=== PATIENT | female | born 1955 | race Hispanic/Latino ===

== ENCOUNTER → 2018-10-14 | Day surgery (SDC) | payer BC ==
[~2018-10-14] MED LIST: ABILIFY5 MG PO; CRESTOR10 MG PO; DEPAKOTE ER250 MG PO; FENTANYL CITRATE/PF 100MCG/2 ML INJ ONE; GLUCAGON FOR INJ 1 MG VIAL ONE; HYOSCYAMINE SULFATE 0.5 MG/ML INJ ONE; MIDAZOLAM HCL 2 MG/2 ML VIAL ONE; PROPOFOL IV EMULSION 10 MG/ML 50 ML VIAL ONE; SYNTHROID50 MCG PO; VIT D INJ
--- OUTSIDE RECORDS SUMMARY | 2018-10-14 08:33 | XMS REPORT | Clinical Summary ---
Author Author [facility] Address Unknown Phone Unavailable Care Team Providers Care Technical Support Director Name Role Phone Cindy Ellsworth MD PCP Allergies No Known Allergies Medications End Date Status Medication Sig Dispensed Refills Start Date Active ABILIFY 5 mg tablet Take 2.5 mg 1 by mouth once 6 daily. Active DEPAKOTE ER 250 mg 24 hr Take 250 mg 1 tablet by mouth once 6 daily. Active nystatin-triamcinolone Apply 30 g 0 (MYCOLOG II) 100,000-0.1 topically 2 7 unit/g-% cream (two) times a day. Active Problems Not on file Encounters Care Team Description Date Type Specialty Vickie Callahan MD Encounter for screening mammogram for malignant neoplasm of breast 09/15/2018 Hospital Radiology Encounter Vickie Callahan MD Encounter for screening mammogram for malignant neoplasm of breast (Primary Dx) 09/14/2018 Transcribe Access Orders after 10/13/2017 Social History Date Tobacco Use Types Packs/Day Years Used Unknown If Ever Smoked Sex Assigned at Date Recorded Not on file Industry Job Start Date Occupation Not on file Not on file Not on file Travel End Travel History Travel Start No recent travel history available. Last Filed Vital Signs Not on file Plan of Treatment Health Maintenance Due Date Last Done Comments CERVICAL CANCER SCREENING 1977 COLON CANCER SCREENING 2006 SHINGLES VACCINES (1 of 2006 2) INFLUENZA VACCINE 05/04/2018 BREAST CANCER SCREENING 09/15/2020 09/15/2018, 06/09/2016, 04/10/2015, Additional history exists Procedures Comments Procedure Name Priority Date/Time Associated Diagnosis MAMMO BREAST SCREEN Routine 09/15/2018 Encounter for screening TOMOSYNTHESIS BILATERAL 10:53 AM [employer] mammogram for malignant neoplasm of breast after 10/13/2017 Results * Mammo Breast Screen Tomosynthesis Bilateral (09/15/2018 10:53 AM [employer]) Narrative Performed At PROCEDURE: MAMMO BREAST SCREEN TOMOSYNTHESIS BILATERAL [facility] Computer aided detection was utilized for the interpretation. Bilateral digital screening mammogram was performed with tomosynthesis. COMPARISON EXAMS: [id number] DENSITY:There are scattered areas of fibroglandular density. FINDINGS: No suspicious finding is seen. There are scattered benign-appearing calcifications. An asymmetric density in the upper right breast is unchanged. IMPRESSION: No mammographic evidence of malignancy. Recommend annual screening mammography and correlation with physical exam. BI-RADS 2:BENIGN This facility is accredited by the [employer] for Mammography. A negative x-ray report should not delay biopsy if a dominant or clinically suspicious mass is present.Not all cancers are identified by x-ray. [id number] Performing Organization Address City/State/Zipcode Phone Number [facility] [address] [place] [address] after 10/13/2017 Insurance Payer Benefit Subscriber ID Type Phone Address Plan / Group BCBS BCBS xxxxxxxxxxxx PPO CHOICE PPO/SAM CANO PPO Advance Directives Patient has advance care planning documents on file. For more information, felice norman contact: Vijay Sanford [address] [place] [address]
[2018-10-14 13:00] VITALS: BP 115/81
--- NOTE | 2018-10-14 16:01 | Operative Report ---
DATE OF PROCEDURE: October 14, 2018 REFERRING PHYSICIAN: Dr. Jeannine Levin PROCEDURES PERFORMED 1. Esophagogastroduodenoscopy with biopsies. 2. Colonoscopy with polypectomy. INDICATIONS FOR EGD: Acid reflux. INDICATIONS FOR COLONOSCOPY: Colorectal cancer screening. MEDICATION: Patient was done under MAC. Please see anesthesiologist's note. PROCEDURE: With the patient in the left lateral decubitus position, the flexible fiberoptic Olympus gastroscope was introduced into the esophagus under direct visualization without any difficulty. A minute submucosal nodule was noted in the proximal esophagus, and that was biopsied. The scope was then advanced with ease into the stomach, traversing a small sliding hiatal hernia. Mucosa overlying the antrum and the body revealed some patchy erythema and mild to moderate edema, and biopsies were obtained and sent to stain for H. pylori. Pylorus appeared to be of normal contour and shape. It was intubated with ease, and the scope was advanced all the way to the 2nd portion of the duodenum. The scope was then withdrawn slowly. Mucosa overlying the proximal 2nd portion and the duodenal bulb appeared to be within normal limits. The scope was then withdrawn back into the stomach and retroflexed. Mucosa overlying the fundus and the cardia appeared to be within normal limits. The scope was then straightened out. The stomach was decompressed. Scope was subsequently withdrawn. Patient tolerated the procedure well. IMPRESSION 1. Minute submucosal nodule, proximal esophagus, biopsied. 2. Small sliding hiatal hernia. 3. Gastritis, biopsied. Biopsy sent to stain for H. pylori. PLAN: Follow up histology. Initiate Protonix 40 mg 1 p.o. q.a.m. a.c. The patient was then turned around. After adequate lubrication of the anal canal, a flexible fiberoptic Olympus colonoscope was inserted into the rectum with ease and advanced all the way to the cecum. The scope was then withdrawn slowly. The mucosa overlying the cecum appeared to be within normal limits. Scattered diverticular disease was noted in the ascending, transverse and descending. A minute polyp was hot biopsied from the sigmoid, and 2 minute polyps were hot biopsied from the rectum. The scope was then retroflexed into the distal rectum, and small internal hemorrhoids were noted, none of which was actively bleeding. The scope was then straightened out. It was subsequently withdrawn. Patient tolerated the procedure well. IMPRESSION 1. Diverticulosis. 2. Sigmoid colon polyp, hot biopsied. 3. Rectal polyps, minute, x2, hot biopsied. 4. Small internal hemorrhoids, none actively bleeding. PLAN: Follow up histology. Initiate high-fiber, low-fat diet. Initiate high-fiber supplement. Patient might benefit from a followup colonoscopy in 3 to 5 years. Job#: [id number] cc:JEANNINE LEVIN MD
== END | disposition home or self-care (01) ==
LOC: OR 08:30
PROVIDERS: ATTEND Internal Medicine Gastroenterology
DX: Z12.11 Encounter for screening for malignant neoplasm of colon (principal); K63.5 Polyp of colon; K62.1 Rectal polyp; K29.70 Gastritis, unspecified, without bleeding; K21.9 Gastro-esophageal reflux disease without esophagitis; K22.8 Other specified diseases of esophagus; K44.9 Diaphragmatic hernia without obstruction or gangrene; K57.30 Diverticulosis of large intestine without perforation or abscess without bleeding; K64.8 Other hemorrhoids; R03.0 Elevated blood-pressure reading, without diagnosis of hypertension; E78.00 Pure hypercholesterolemia, unspecified; E03.9 Hypothyroidism, unspecified; F41.9 Anxiety disorder, unspecified; Z01.810 Encounter for preprocedural cardiovascular examination; Z68.31 Body mass index [BMI] 31.0-31.9, adult
CPT/HCPCS: 43239; 45384; 93005; J1610; J1980; J2250; 45378

== ENCOUNTER → 2021-11-26 | Day surgery (SDC) | payer MEDICARE, BC ==
[2021-11-24 10:47] LABS: BASOPHILS # (AUTO) 0.1 (0.0-0.1); BASOPHILS % 0.5 % (0.0-1.0); EOSINOPHILS # (AUTO) 0.1 (0.0-0.4); EOSINOPHILS % 0.9 % (0.0-6.0); HEMATOCRIT 40.3 % (34.2-44.1); HEMOGLOBIN 12.1 g/dL (12.0-16.0); LYMPHOCYTES # (AUTO) 2.7 (1.0-3.2); LYMPHOCYTES % 29.3 % (18.0-39.1); MEAN CORPUSCULAR VOLUME 66.6 fL (81-99); MONOCYTES # (AUTO) 0.7 (0.2-0.8); MONOCYTES % 7.6 % (4.4-11.3); NEUTROPHILS # (AUTO) 5.7 (2.1-6.9); NEUTROPHILS % 61.4 % (38.7-80.0); PLATELET COUNT 234 x10e3/uL (140-360); RED BLOOD COUNT 6.05 x10e6/uL (3.6-5.1); RED CELL DISTRIBUTION WIDTH 17.8 % (11.7-14.4)
[~2021-11-26] MED LIST changes: +DEXTROSE 5% 250ML 0 ML IV ONE; -GLUCAGON FOR INJ 1 MG VIAL ONE; -HYOSCYAMINE SULFATE 0.5 MG/ML INJ ONE; +LIDOCAINE HCL 2% LOCAL INJ 5 ML SDV VIAL INJ ONE; +METOCLOPRAMIDE HCL 10 MG/2ML VIAL ONE; +MTV PO; +ONDANSETRON HCL INJ 2MG/ML 2ML 2 MG/ML VIAL ONE; +POVIDONE IODINE 0.05% 0.05 % ML PO ONE; +PROPOFOL IV EMULSION 10 MG/ML 20 ML VIAL ONE; -PROPOFOL IV EMULSION 10 MG/ML 50 ML VIAL ONE
[2021-11-26 09:10] VITALS: BP 123/72
== END | disposition home or self-care (01) ==
LOC: OR 06:41
PROVIDERS: ATTEND Internal Medicine Gastroenterology
DX: R63.4 Abnormal weight loss (principal); Z86.010 Personal history of colon polyps; K59.00 Constipation, unspecified; K57.30 Diverticulosis of large intestine without perforation or abscess without bleeding; K64.8 Other hemorrhoids; E11.9 Type 2 diabetes mellitus without complications; E78.5 Hyperlipidemia, unspecified; F32.A Depression, unspecified; F41.9 Anxiety disorder, unspecified; Z01.810 Encounter for preprocedural cardiovascular examination; Z01.812 Encounter for preprocedural laboratory examination; Z20.822 Contact with and (suspected) exposure to COVID-19; Z79.899 Other long term (current) drug therapy
CPT/HCPCS: 36415 ×2; 45378; 82948; 85025; 93005; J2001; J2250; J2405; J2704; J2765; J3010; U0002; J7070

== ENCOUNTER → 2022-11-02 | Day surgery (SDC) | payer MEDICARE, BC ==
[2022-10-26 15:34] LABS: BASOPHILS # (AUTO) 0.1 (0.0-0.1); BASOPHILS % 0.7 % (0.0-1.0); EOSINOPHILS # (AUTO) 0.1 (0.0-0.4); EOSINOPHILS % 1.5 % (0.0-6.0); HEMATOCRIT 39.1 % (34.2-44.1); HEMOGLOBIN 12.1 g/dL (12.0-16.0); LYMPHOCYTES # (AUTO) 2.4 (1.0-3.2); LYMPHOCYTES % 28.3 % (18.0-39.1); MEAN CORPUSCULAR HEMOGLOBIN 19.9 pg (28-32); MEAN CORPUSCULAR HGB CONC 30.9 g/dL (31-35); MEAN CORPUSCULAR VOLUME 64.4 fL (81-99); MONOCYTES # (AUTO) 0.7 (0.2-0.8); MONOCYTES % 8.2 % (4.4-11.3); NEUTROPHILS # (AUTO) 5.2 (2.1-6.9); NEUTROPHILS % 60.7 % (38.7-80.0); PLATELET COUNT 226 x10e3/uL (140-360); RED BLOOD COUNT 6.07 x10e6/uL (3.6-5.1); RED CELL DISTRIBUTION WIDTH 16.6 % (11.7-14.4)
[~2022-11-02] MED LIST changes: -DEXTROSE 5% 250ML 0 ML IV ONE; -FENTANYL CITRATE/PF 100MCG/2 ML INJ ONE; +GLYCOPYRROLATE INJ 0.2 MG/ML VIAL ONE; +MULTI-VITAMIN1 EACH PO; +OMEPRAZOLE40 MG PO; -ONDANSETRON HCL INJ 2MG/ML 2ML 2 MG/ML VIAL ONE; +VITAMIN D3 COM1 EACH PO
[2022-11-02 08:20] VITALS: BP 105/62
== END | disposition home or self-care (01) ==
LOC: OR 05:11
PROVIDERS: ATTEND Internal Medicine Gastroenterology
DX: K20.90 Esophagitis, unspecified without bleeding (principal); K29.50 Unspecified chronic gastritis without bleeding; K21.9 Gastro-esophageal reflux disease without esophagitis; E78.5 Hyperlipidemia, unspecified; F41.9 Anxiety disorder, unspecified; F32.A Depression, unspecified; Z01.810 Encounter for preprocedural cardiovascular examination; Z01.812 Encounter for preprocedural laboratory examination; Z79.899 Other long term (current) drug therapy
CPT/HCPCS: 36415 ×2; 43239; 43450; 82948; 85025; 88305; 88342; 93005; C9113; J2001; J2250; J2704; J2765; 88304; 88312